=== PATIENT | female | born 1975 | race Caucasian/White ===

== ENCOUNTER → 2017-08-18 | Outpatient (CLI) | payer BC ==
[~2017-08-18] MED LIST: DIPH-437 PO; FERR324T PO; LISD1CAP2 PO; LORA-741 PO; OMEP20TA PO
== END | disposition home or self-care (01) ==
LOC: C.PAPS 09:01
PROVIDERS: ATTEND Physician Assistant
DX: Z01.419 Encounter for gynecological examination (general) (routine) without abnormal findings (principal)

== ENCOUNTER 2020-06-17 08:28 | Observation (INO) ==
[2020-06-17 09:30] LABS: Basophils # (auto) 0.03 K/uL (0-0.2); Basophils % (auto) 0.5 %; Eosinophils # (auto) 0.07 K/uL (0-0.5); Eosinophils % (auto) 1.3 %; Hematocrit (blood only) 43.9 % (37-47); Hemoglobin 14.4 g/dL (12.0-16.0); Immature Granulocytes # (auto) 0.01 K/uL (0.00-0.02); Immature Granulocytes % (auto) 0.2 %; Lymphocytes % (auto) 27.2 %; Mean Corpuscular Hemoglobin 30.4 pg (25-34); Mean Corpuscular Hgb Conc 32.8 g/dL (32-36); Mean Corpuscular Volume 92.6 fL (80-100); Mean Platelet Volume 9.3 fL (7.4-10.4); Monocytes # (auto) 0.65 K/uL (0.11-0.59); Monocytes % (auto) 11.8 %; Neutrophils # (auto) 3.26 K/uL (1.4-6.5); Platelet Count 472 K/uL (130-400); RDW Coefficient of Variation 13.8 % (11.5-14.5); RDW Standard Deviation 47.3 fL (36.4-46.3); Red Blood Count 4.74 M/uL (4.2-5.4); White Blood Count 5.52 K/uL (4.8-10.8)
[2020-06-17 09:44] LABS: Partial Thromboplastin Time 27.3 Seconds (21.0-31.0); Prothrombin Time 10.7 Seconds (9.0-12.0)
[2020-06-17] MEDS ORDERED: PANTOPRAZOLE BOLUS/DRIP 1 EA IV STA (09:44)
[2020-06-17] MEDS ORDERED: PANTOprazole 80 MG in DEXTROSE 5% 100 ML IV ONE (09:44)
[2020-06-17 09:46] LABS: Albumin Level 4.2 gm/dl (3.4-5.0); BUN Creatinine Ratio 15.5 (10-20); Calcium 9.1 mg/dl (8.5-10.1); Creatinine Clr Calc Pharmacy 74.6 ml/min; Est GFR (Non-African American) 76.8; Potassium 4.2 mmol/L (3.5-5.1)
[2020-06-17 09:48] LABS: Albumin Globulin Ratio 1.1 (0.9-2); Bilirubin,Total 0.4 mg/dl (0.2-1); Globulin 3.7 gm/dl (2.5-4.0); Total Protein 7.9 gm/dl (6.4-8.2)
--- NOTE | 2020-06-17 10:06 | Emergency Department Note ---
History of Present Illness General Chief complaint: Diarrhea Stated complaint: BLACK RUNNY STOOL Time Seen by Provider: 06/17/20 08:37 Source: patient Mode of arrival: ambulatory Limitations: no limitations History of Present Illness Provider complaint: GI bleed Maximum Pain Intensity: 0 This is a 44-year-old female who presents to the ED with a chief complaint of black stool. She is worried about GI bleed. Her symptoms started about an hour prior to arrival. She has had 2 episodes of black diarrhea that she is concerned about bleeding. She does have history of upper GI bleed in the past. She reports a history of gastric bypass surgery at [facility] about 17 years ago. The patient denies any other symptoms such as lightheadedness, chest pains or shortness of breath. She states that the previous time that she had this, she was admitted for several days and they could not encounter the source of bleeding. Home Medications Medication Instructions Recorded Confirmed Type melatonin 15 mg PO HS PRN 08/07/19 06/17/20 History phentermine 37.5 mg PO QAM 08/07/19 06/17/20 History diphenhydramine-acetaminophen 1 tab PO Q6H PRN 06/17/20 06/17/20 History [Tylenol PM Extra Strength] Allergies Allergy/AdvReac Type Severity Reaction Status Date / Time Penicillins Allergy Mild Verified 06/17/20 09:05 Sulfa (Sulfonamide Allergy Mild Verified 06/17/20 09:05 Antibiotics) amoxicillin Allergy Unknown RASH Verified 06/17/20 09:05 NSAIDS (Non-Steroidal AdvReac Unknown Unknown Unverified 06/17/20 09:05 Anti-Inflamma Past Med/Surg History Medical History (Updated 06/17/20 @ 10:05 by Marc Ramirez DO) No pertinent past medical history Surgical History No pertinent past surgical history Social History Smoking Status: Former smoker Feels Safe at Home: Yes Review of Systems A total of 10 systems reviewed and were otherwise negative Physical Exam Vital Signs Vital Signs - 24 hr 06/17/20 08:32 06/17/20 10:11 Temperature 36.5 C Temperature Source Oral Pulse Rate 108 H Pulse Rate [Apical] 96 H Pulse Rhythm Regular Pulse Rhythm [Apical] Regular Pulse Strength Normal Respiratory Rate 20 18 Respiratory Effort / Characteristics Non-Labored Spontaneous Non-Labored Spontaneous Respiratory Depth Normal Normal Respiratory Pattern Regular Regular Blood Pressure 157/98 H Blood Pressure [Right Arm] 145/97 H Blood Pressure Mean 117 Blood Pressure Mean [Right Arm] 113 Pulse Oximetry 99 100 Oxygen Delivery Method Room Air Room Air Sepsis Recent Fever Within 48 Hours No Sepsis New/Unexplained Change in Mental Status N/A Sepsis Action Taken by Nursing No Action Required CONSTITUTIONAL/VITAL SIGNS: Reviewed / noted above. GENERAL: Non-toxic in appearance. INTEGUMENTARY: Warm, dry, and New Site. HEAD: Normocephalic. EYES: without scleral icterus or trauma. ENT/OROPHARYNX: clear and moist. LYMPHADENOPATHY/NECK: Is supple without lymphadenopathy or meningismus. RESPIRATORY: Lungs clear and equal. CARDIOVASCULAR: Regular rate and rhythm. GI/ABDOMEN: Soft and nontender. No organomegaly or pulsatile mass. No rebound or guarding. Normal bowel sounds. EXTREMITIES: Warm and well perfused. BACK: No CVA tenderness. NEUROLOGICAL: Intact without focal deficits. PSYCHIATRIC: normal affect. MUSCULOSKELETAL: Normally developed with good muscle tone. TRIAGE NURSING DOCUMENTATION REVIEWED. Course Administered Medications Pantoprazole Sodium 40 mg/ (Dextrose) 100 mls @ 20 mls/hr IV Q5H [facility] Stop: 07/17/20 09:58 Last Admin: 06/17/20 10:10 Dose: 8 mg/hr, 20 mls/hr Documented by: [id number] Discontinued Medications Pantoprazole Sodium (Protonix Bolus/Drip) 0 mls @ 1 mls/hr IV ONE STA Stop: 06/17/20 09:45 Last Admin: 06/17/20 10:10 Dose: Not Given Documented by: [id number] Pantoprazole Sodium 80 mg/ (Dextrose) 120 mls @ 400 mls/hr IV NOW ONE Stop: 06/17/20 10:01 Last Infusion: 06/17/20 10:31 Dose: 0 mls/hr Documented by: [id number] Admin: 06/17/20 10:10 Dose: 400 mls/hr Documented by: [id number] Medical Decision Making Differential Diagnosis Differential includes acute coronary syndrome, myocardial infarction, CVA, TIA, anemia, infection, pneumonia, UTI, pyelonephritis, poor nutrition, dehydration, electrolyte disturbance,hypoglycemia. Medical Records Attestation: I reviewed the patient's medical records. Home Medications Current Medication List: was personally reviewed by me Laboratory Data Attestation: I reviewed the patient's lab results. Result diagrams: 06/17/20 09:21 06/17/20 09:21 Lab Results 06/17/20 06/17/20 06/17/20 Range/Units 09:21 09:21 09:21 WBC 5.52 (4.8-10.8) K/uL RBC 4.74 (4.2-5.4) M/uL Hgb 14.4 (12.0-16.0) g/dL Hct 43.9 (37-47) % MCV 92.6 (80-100) fL MCH 30.4 (25-34) pg MCHC 32.8 (32-36) g/dL RDW Std Deviation 47.3 H (36.4-46.3) fL RDW Coeff of Katrin 13.8 (11.5-14.5) % Plt Count 472 H (130-400) K/uL MPV 9.3 (7.4-10.4) fL Immature Gran % (Auto) 0.2 % Neut % (Auto) 59.0 % Lymph % (Auto) 27.2 % [place] % (Auto) 11.8 % Eos % (Auto) 1.3 % Baso % (Auto) 0.5 % Neut # (Auto) 3.26 (1.4-6.5) K/uL Lymph # (Auto) 1.50 (1.2-3.4) K/uL [place] # (Auto) 0.65 H (0.11-0.59) K/uL Eos # (Auto) 0.07 (0-0.5) K/uL Baso # (Auto) 0.03 (0-0.2) K/uL Immature Gran # (Auto) 0.01 (0.00-0.02) K/uL PT 10.7 (9.0-12.0) Seconds INR 1.0 (0.9-1.1) APTT 27.3 (21.0-31.0) Seconds PTT Ratio 1.0 Sodium 137 (136-145) mmol/L Potassium 4.2 (3.5-5.1) mmol/L Chloride 106 (98-107) mmol/L Carbon Dioxide 27 (21-32) mmol/L Anion Gap 4.0 (3-11) BUN 14 (7-18) mg/dl Creatinine 0.92 (0.6-1.2) mg/dl Est Cr Clr Drug Dosing 74.6 ml/min Est GFR ( Amer) 89.0 Est GFR (Non-Af Amer) 76.8 BUN/Creatinine Ratio 15.5 (10-20) Glucose 98 (70-99) mg/dl Calcium 9.1 (8.5-10.1) mg/dl Total Bilirubin 0.4 (0.2-1) mg/dl AST 29 (15-37) U/L ALT 36 (12-78) U/L Alkaline Phosphatase 58 (45-117) U/L Total Protein 7.9 (6.4-8.2) gm/dl Albumin 4.2 (3.4-5.0) gm/dl Globulin 3.7 (2.5-4.0) gm/dl Albumin/Globulin Ratio 1.1 (0.9-2) POC Stool Occult Blood (Negative) 06/17/20 Range/Units 09:45 WBC (4.8-10.8) K/uL RBC (4.2-5.4) M/uL Hgb (12.0-16.0) g/dL Hct (37-47) % MCV (80-100) fL MCH (25-34) pg MCHC (32-36) g/dL RDW Std Deviation (36.4-46.3) fL RDW Coeff of Katrin (11.5-14.5) % Plt Count (130-400) K/uL MPV (7.4-10.4) fL Immature Gran % (Auto) % Neut % (Auto) % Lymph % (Auto) % [place] % (Auto) % Eos % (Auto) % Baso % (Auto) % Neut # (Auto) (1.4-6.5) K/uL Lymph # (Auto) (1.2-3.4) K/uL [place] # (Auto) (0.11-0.59) K/uL Eos # (Auto) (0-0.5) K/uL Baso # (Auto) (0-0.2) K/uL Immature Gran # (Auto) (0.00-0.02) K/uL PT (9.0-12.0) Seconds INR (0.9-1.1) APTT (21.0-31.0) Seconds PTT Ratio Sodium (136-145) mmol/L Potassium (3.5-5.1) mmol/L Chloride (98-107) mmol/L Carbon Dioxide (21-32) mmol/L Anion Gap (3-11) BUN (7-18) mg/dl Creatinine (0.6-1.2) mg/dl Est Cr Clr Drug Dosing ml/min Est GFR ( Amer) Est GFR (Non-Af Amer) BUN/Creatinine Ratio (10-20) Glucose (70-99) mg/dl Calcium (8.5-10.1) mg/dl Total Bilirubin (0.2-1) mg/dl AST (15-37) U/L ALT (12-78) U/L Alkaline Phosphatase (45-117) U/L Total Protein (6.4-8.2) gm/dl Albumin (3.4-5.0) gm/dl Globulin (2.5-4.0) gm/dl Albumin/Globulin Ratio (0.9-2) POC Stool Occult Blood Positive A (Negative) ECG Data Attestation: I personally reviewed and interpreted this ECG as follows: Indication: + weakness Rate (beats per minute): 100 Rhythm: + sinus rhythm ECG ST segments: no ST elevation ECG Findings: no PVCs MDM Narrative Patient presents with 2 episodes of diarrhea with concerns about an upper GI bleed. She has history of gastric bypass. Her diarrhea stool is black and guaiac positive here concerning for an upper GI bleed. The patient was given IV Protonix with IV Protonix bolus and drip. She will be seen by the hospitalist service for further inpatient evaluation and care. Impression & Plan Acute upper gastrointestinal bleeding Discharge Plan Visit Data Chief Complaint: Diarrhea Stated Complaint: BLACK RUNNY STOOL ED Provider: aMrc Ramirez Discharge Problem: Acute upper gastrointestinal bleeding Patient Disposition: Being Evaluated by Hospitalist Forms Stand Alone Forms: [facility], [facility] Emergency Department, Important Visit Information Prescriptions Prescriptions: No Action phentermine 37.5 mg tablet 37.5 mg PO QAM RF: 0 melatonin 5 mg Tablet 15 mg PO HS PRN (Reason: Sleep) RF: 0 diphenhydramine-acetaminophen [Tylenol PM Extra Strength] 25-500 mg Tablet 1 tab PO Q6H PRN (Reason: Pain) RF: 0 Referrals Referrals: PCP,NO [Primary Care Provider] -
[2020-06-17] MEDS: PANTOprazole 40 MG in DEXTROSE 5% 100 ML IV SCH ×4 (10:10→23:34)
--- NOTE | 2020-06-17 11:23 | History & Physical Report ---
Date of Service June 17, 2020 Assessment & Plan (1) Acute upper gastrointestinal bleeding: Continue IV pantoprazole bolus and drip N.p.o. LR @ 125 ml/hr Consult gastroenterology (2) Insomnia: Continue Tyelenol PM PRN. Hold melatonin as patient reports unhelpful. (3) Recurrent UTI: Notable history of recurrent UTIs as per patient (4) H/O gastric bypass: Notable history of this. History of Present Illness Chief Complaint: Melena Primary Care Provider: Dr Andrade, PCP Solange Bender is a 44-year-old female with prior gastric bypass who presents to the ER with melena that started today. She had chicken, wine last night which was nothing out of the ordinary. No abdominal pain, heartburn, nausea, vomiting, hematemesis. She has a history of an upper GI bleed 8 to 10 years ago. She had an endoscopy and colonoscopy at that time but no bleeding was found per patient recollection. She does not remember how long she was on a PPI however is currently not taking any PPI or H2 sapna. She has a significant history of iron deficiency anemia. Unable to take iron oral supplementation therefore reports having a Venofer course prescribed once every few years. She takes phentermine for weight loss for last 7 months. Last time took yesterday. In the ER her stool was heme positive and she had an additional episode of melena. Hemaglobin was within normal limits. She was referred to medicine for admission and ongoing management of upper GI bleed. Allergies Allergy/AdvReac Type Severity Reaction Status Date / Time Penicillins Allergy Mild Verified 06/17/20 09:05 Sulfa (Sulfonamide Allergy Mild Verified 06/17/20 09:05 Antibiotics) amoxicillin Allergy Unknown RASH Verified 06/17/20 09:05 NSAIDS (Non-Steroidal AdvReac Unknown Unknown Unverified 06/17/20 09:05 Anti-Inflamma Home Medications Medication Instructions Recorded Confirmed Type melatonin 15 mg PO HS PRN 08/07/19 06/17/20 History phentermine 37.5 mg PO QAM 08/07/19 06/17/20 History diphenhydramine-acetaminophen 1 tab PO Q6H PRN 06/17/20 06/17/20 History [Tylenol PM Extra Strength] Past Med/Surg History Medical History (Updated 06/17/20 @ 11:46 by Nicholas Mendoza MD) Generalized anxiety disorder History of upper gastrointestinal bleeding Insomnia Iron deficiency anemia Recurrent UTI Surgical History (Updated 06/17/20 @ 11:18 by Nicholas Mendoza MD) H/O gastric bypass Social History (Updated 06/17/20 @ 11:21 by Nicholas Mendoza MD) Smoking Status: Former smoker Age Quit Using Tobacco: 42; packs per day: 0.5; Years Smoked: 22; Do You Dip or Chew Tobacco: No; Hx Alcohol Use: Yes Alcohol type: wine Hx Substance Use: Yes Prescribed Medications Comment: Medical marijuana Last Used Substance: Hours (ago) Last Used Substance Other:: 0700 Substance Use Type Other:: medical marijuana Preferred Language: Japanese Communication Ability: Effective Bottom Wheeler Required: No Beliefs That Will Affect Care: None Current Living Situation: Spouse Other Information That Helps Us Care for You: No Feels Safe at Home: Yes Safety Concerns: Feels Safe At This Time Assistive Devices: Contacts and Glasses Review of Systems Review of Systems: All systems reviewed & are unremarkable except as noted in HPI & below Physical Exam Constitutional: well developed and well nourished; no acute distress Eyes: + anicteric sclerae; normal pupil size ENMT: external ear and nose normal, oropharynx normal Neck: trachea midline, no thyromegaly Cardiovascular: RRR, no murmur, no edema Gastrointestinal (Abdomen): normal bowel sounds, soft, nontender, no hepatosplenomegaly Musculoskeletal: no cyanosis or clubbing, extremities motor strength 5/5 Skin: no rashes, warm and dry Neurologic: moves all extremities and awake; not confused Psychiatric: A+Ox3, euthymic affect Genitourinary: no CVA tenderness Results & Data Results & Data ([facility]) Vital Signs (Past 12 Hours) Vital Signs Temp Pulse Pulse Resp BP BP Pulse Ox 06/17/20 10:11 96 H 18 145/97 H 100 06/17/20 08:32 36.5 C 108 H 20 157/98 H 99 Medications Administered ER Medications given: Pantoprazole IV bolus and drip ECG Indication: other (GI bleed) Rate (beats per minute): 100 Rhythm: normal sinus Findings: no acute ischemic change Comparison ECG Date: from (Aug 07, 2019) Change: the following changes noted (TEI no longer present in inferior leads) Code Status & VTE Plan Code Status Full VTE Prophylaxis Plan VTE Prophylaxis will be ordered: No PG Care Time/CCT Total # of Minutes Spent Total Time Spent with Patient: Total time spent is greater than 50% in coordination of care (as documented) at patient's floor/unit and/or counseling patient: Coding Level of Care Code 22903 OBS Care - Level 2 Diagnoses Acute upper gastrointestinal bleeding K92.2 Insomnia G47.00 Recurrent UTI N39.0 H/O gastric bypass Z98.84
[2020-06-17] MEDS ORDERED: ONDANSETRON INJ 2 MG/ML 2 ML VIAL IV PRN (12:47)
[2020-06-17] MEDS ORDERED: MELATONIN 3 MG TAB PO PRN (12:56)
[2020-06-17] MEDS: LACTATED RINGER'S 1,000 ML IV SCH ×2 (13:05→20:39)
[2020-06-17] MEDS: ACETAMINOPHEN 325 MG TAB PO PRN ×2 (13:53→19:50)
[2020-06-17 18:29] LABS: Hematocrit (blood only) 39.6 % (37-47); Hemoglobin 13.1 g/dL (12.0-16.0)
[2020-06-18] MEDS ORDERED: Nursing to Pharmacy Communication SCH (03:15)
[2020-06-18] MEDS: LACTATED RINGER'S 1,000 ML IV SCH ×3 (03:49→20:46)
[2020-06-18] MEDS: PANTOprazole 40 MG in DEXTROSE 5% 100 ML IV SCH ×2 (03:50→09:13)
[2020-06-18] MEDS: ACETAMINOPHEN 325 MG TAB PO PRN ×3 (04:43→22:58)
[2020-06-18 07:47] LABS: Hematocrit (blood only) 41.5 % (37-47); Hemoglobin 13.5 g/dL (12.0-16.0); Mean Corpuscular Hemoglobin 30.3 pg (25-34); Mean Corpuscular Hgb Conc 32.5 g/dL (32-36); Mean Corpuscular Volume 93.3 fL (80-100); Mean Platelet Volume 9.4 fL (7.4-10.4); Platelet Count 421 K/uL (130-400); RDW Coefficient of Variation 13.8 % (11.5-14.5); RDW Standard Deviation 47.2 fL (36.4-46.3); Red Blood Count 4.45 M/uL (4.2-5.4); White Blood Count 6.52 K/uL (4.8-10.8)
[2020-06-18 08:30] LABS: BUN Creatinine Ratio 9.9 (10-20); Calcium 8.5 mg/dl (8.5-10.1); Creatinine Clr Calc Pharmacy 91.5 ml/min; Est GFR (African American) 113.9; Est GFR (Non-African American) 98.3; Potassium 3.6 mmol/L (3.5-5.1)
--- NOTE | 2020-06-18 10:46 | Gastrointestinal Consultation ---
Date of Consultation June 18, 2020 Assessment & Plan (1) H/O gastric bypass: (2) Acute upper gastrointestinal bleeding: (3) Melena: Continue Protonix but decrease to 40 mg IV BID Clear Liquid diet NPO after midnight EGD in AM Further recommendations to follow above noted testing History of Present Illness Reason for Consultation: Melena Attending Physician: Fred Gunn DO History of Present Illness Solange Bender is a pleasant 44 yo CF who presented to the ER yesterday with 3 reported episodes of melena. Upon arrival to the ER, she did have another episode of melena, and was found to be heme positive in the ER. She was hemodynamically stable and H/H was good. She was started on a protonix gtt. and admitted. At the time I saw her, she states that she is feeling much better. She denies having any further BM's. She denies any abdominal pain, fevers, chills, nausea, vomiting, hematemesis, or hematochezia. She states that she is hungry. Of note, she states that she underwent Gastric Bypass surgery approximately 17 years ago, and did have a prior GI bleed approximately 10 years ago. She states that her presentation at that time was similar, with multiple episodes of black tarry stools. She reports that she did have both an EGD and colonoscopy at that time, but does not remember being told of any abnormalities. She states that she has not take PPI therapy and has no recurrent GERD symptoms. She denies any NSAID use. She has no further complaints. Allergies Allergy/AdvReac Type Severity Reaction Status Date / Time Penicillins Allergy Mild Verified 06/17/20 09:05 Sulfa (Sulfonamide Allergy Mild Verified 06/17/20 09:05 Antibiotics) amoxicillin Allergy Unknown RASH Verified 06/17/20 09:05 NSAIDS (Non-Steroidal AdvReac Unknown Unknown Unverified 06/17/20 09:05 Anti-Inflamma Home Medications Medication Instructions Recorded Confirmed Type melatonin 15 mg PO HS PRN 08/07/19 06/17/20 History phentermine 37.5 mg PO QAM 08/07/19 06/17/20 History diphenhydramine-acetaminophen 1 tab PO Q6H PRN 06/17/20 06/17/20 History [Tylenol PM Extra Strength] Patient History Medical History Generalized anxiety disorder History of upper gastrointestinal bleeding Insomnia Iron deficiency anemia Recurrent UTI Surgical History H/O gastric bypass Social History Smoking Status: Former smoker Age Quit Using Tobacco: 42; packs per day: 0.5; Years Smoked: 22; Do You Dip or Chew Tobacco: No; Hx Alcohol Use: Yes Alcohol type: wine Hx Substance Use: Yes Prescribed Medications Comment: Medical marijuana Last Used Substance: Hours (ago) Last Used Substance Other:: 0700 Substance Use Type Other:: medical marijuana Preferred Language: Estonian Communication Ability: Effective Manufacturing Controller Required: No Beliefs That Will Affect Care: None Current Living Situation: Spouse Other Information That Helps Us Care for You: No Feels Safe at Home: Yes Safety Concerns: Feels Safe At This Time Assistive Devices: Contacts and Glasses Review of Systems Review of Systems: All systems reviewed & are unremarkable except as noted in HPI & below Physical Exam Constitutional: WD/WN, vitals as above Eyes: PERRL, conjunctivae normal, anicteric sclerae ENMT: external ear and nose normal, oropharynx normal Neck: trachea midline, no thyromegaly Respiratory: normal respiratory effort; no respiratory distress and no labored breathing Cardiovascular: Rate/Rhythm: regular rate and regular rhythm Gastrointestinal (Abdomen): normal bowel sounds, soft, nontender, no hepatosplenomegaly Skin: no rashes, warm and dry Psychiatric: A+Ox3, euthymic affect Results & Data ([facility]) Vital Signs (Past 12 Hours) Vital Signs Temp Pulse Pulse Resp BP Pulse Ox 06/18/20 08:10 37.1 C 93 H 16 136/80 97 06/18/20 07:41 73 06/18/20 03:00 36.8 C 83 16 130/79 97 06/18/20 01:00 80 06/17/20 23:00 37.1 C 84 18 135/85 96 PG Care Time/CCT Total # of Minutes Spent Total Time Spent with Patient: Total time spent is greater than 50% in coordination of care (as documented) at patient's floor/unit and/or counseling patient: Coding Level of Care Code 66466 Inpt Consult Level 4 Diagnoses H/O gastric bypass Z98.84 Acute upper gastrointestinal bleeding K92.2 Melena K92.1
--- NOTE | 2020-06-18 15:11 | Hospitalist Progress Note ---
Date of Service June 18, 2020 Assessment & Plan (1) Acute upper gastrointestinal bleeding: Solange Bender is a 44 y/o female with hx of GABI (unable to take iron oral supplementation therefore receives Venofer once every few years), gastric bypass surgery ~17 years ago, recurrent UTIs, insomnia, and prior GI bleed 8-10 years ago admitted for upper GI bleed on 06/17/20. Acute upper gastrointestinal bleeding w/ melena - Continue IV pantoprazole 40mg BID - Per GI, clear liquid diet today then plan for NPO after midnight in preparation for EGD tomorrow, 06/19/20 - Continue IVF with LR at 125 ml/hr - CBC qAM - GI consulted; appreciate their recommendations Insomnia - Continue home Tylenol PM PRN - Continue home melatonin 15mg po qhs prn Hx of gastric bypass - performed 17 years ago - Patient w/ healthy BMI of 24.8 - She is noted to have been taking Phentermine for the past 7 months - No changes in weight over the past several weeks - Would consider d/c phentermine given healthy weight at this time Hx of Iron Deficiency Anemia - Continue outpatient management Diet: Clear liquid diet; NPO at midnight in preparation for EGD tomorrow DVT PPx: Ad jono as tolerated; pharmacologic ppx contraindicated due to current GI bleed Disp: Medsurge --> anticipate d/c home after EGD if Hgb remains stable Code status: FULL CODE (2) Melena: (3) H/O gastric bypass: (4) Insomnia: Admission and Anticipated Discharge Date Admission Date: June 17, 2020 Supervising Physician Co-Signing Physician Notes I personally examined the patient and verified all wills points of history and exam, discussed case, and agree with decision making with Dr Hernandez. feeling better for scope tomorrow vitals noted nad heent nc at mmm breathing unlabored no accessory muscles good effort skin no rashes no pallor or icterus neuro no focal deficits UGI bleed - ppi, scope tomorrow. hemodynamically stable otherwise as above Subjective Patient seen and evaluated at bedside this morning. Patient states that she overall feels well. Reports last bowel movement occurring when in the ED yesterday. Patient denies abdominal pain, nausea, vomiting, fever, chills, CP, SOB, or cough. Review of Systems Constitutional: no fever and no chills Respiratory: no cough and no dyspnea Cardiovascular: no chest pain Gastrointestinal: no abdominal pain, no nausea and no vomiting Physical Exam Physical Exam: GENERAL: No acute distress. Well developed and well nourished. Vital signs reviewed. EYES: EOMI. Anicteric sclerae. HENT: Moist mucous membranes. RESPIRATORY: Clear to auscultation bilaterally. No wheezing, rales, or rhonchi. CARDIOVASCULAR: Regular rate and rhythm. No murmurs. ABDOMEN: Soft, non-tender and non-distended. Normal bowel sounds. EXTREMITIES: No edema. Non-tender. NEUROLOGIC: A/O x4. No focal neurological deficits. PSYCHIATRIC: Cooperative. Appropriate mood and affect. Results & Data Results & Data ([place]) Vital Signs (Past 12 Hours) Vital Signs Temp Pulse Pulse Resp BP Pulse Ox 06/18/20 12:26 36.7 C 80 16 148/92 H 98 06/18/20 08:10 37.1 C 93 H 16 136/80 97 06/18/20 07:41 73 Resident Activity Tracking Resident Involvement: Resident Care Provided Care Provided: Adult Hospital Medicine
--- NOTE | 2020-06-18 17:35 | Billing Data ---
Date of Service June 18, 2020 Coding Level of Care Code 97582 Subseq Hosp Care Lvl 3
--- NOTE | 2020-06-18 17:38 | Billing Data ---
Date of Service June 18, 2020 Coding Level of Care Code 50780 Subseq Obs Care Lvl 3 Comment disregard 233 - wrong code
[2020-06-18] MEDS: PANTOprazole 40 MG in SYRINGE 0 ML IV SCH ×2 (20:27→20:54)
[2020-06-19] MEDS: LACTATED RINGER'S 1,000 ML IV SCH ×3 (04:57→16:44)
[2020-06-19] MEDS ORDERED: ACETAMINOPHEN 1,000 MG/100 ML VIAL IV STA (05:03)
--- NOTE | 2020-06-19 06:16 | Hospitalist Progress Note ---
Date of Service June 19, 2020 Assessment & Plan (1) Acute upper gastrointestinal bleeding: Solange Bender is a 44 y/o female with hx of GABI (unable to take iron oral supplementation therefore receives Venofer once every few years), gastric bypass surgery ~17 years ago, recurrent UTIs, insomnia, and prior GI bleed 8-10 years ago admitted for upper GI bleed on 06/17/20. Acute upper gastrointestinal bleeding w/ melena - Continue IV pantoprazole 40mg BID - Per GI, clear liquid diet today then plan for NPO after midnight in preparation for EGD tomorrow, 06/19/20 - Continue IVF with LR at 125 ml/hr - CBC qAM - GI consulted; appreciate their recommendations Insomnia - Continue home Tylenol PM PRN - Continue home melatonin 15mg po qhs prn Hx of gastric bypass - performed 17 years ago - Patient w/ healthy BMI of 24.8 - She is noted to have been taking Phentermine for the past 7 months - No changes in weight over the past several weeks - Would consider d/c phentermine given healthy weight at this time Hx of Iron Deficiency Anemia - Continue outpatient management Diet: Clear liquid diet; NPO at midnight in preparation for EGD tomorrow DVT PPx: Ad jono as tolerated; pharmacologic ppx contraindicated due to current GI bleed Disp: Medsurge --> anticipate d/c home after EGD if Hgb remains stable Code status: FULL CODE (2) Melena: (3) H/O gastric bypass: (4) Insomnia: Admission and Anticipated Discharge Date Admission Date: June 17, 2020 Subjective MCDUFFIE last night, received Tylenol IV b/c NPO in lieu of procedure today. --from yesterday-- Patient seen and evaluated at bedside this morning. Patient states that she overall feels well. Reports last bowel movement occurring when in the ED yesterday. Patient denies abdominal pain, nausea, vomiting, fever, chills, CP, SOB, or cough. Results & Data Results & Data ([facility]) Vital Signs (Past 12 Hours) Vital Signs Temp Pulse Pulse Resp BP Pulse Ox 06/19/20 03:59 73 06/19/20 03:00 36.9 C 83 16 144/77 H 96 06/18/20 23:55 37.0 C 78 16 124/78 96 06/18/20 20:20 36.8 C 82 18 156/90 H 96
--- NOTE | 2020-06-19 06:23 | Electrocardiogram Report ---
Test Reason : Blood Pressure : / mmHG Vent. Rate : 100 BPM Atrial Rate : 100 BPM P-R Int : 142 ms QRS Dur : 092 ms QT Int : 360 ms P-R-T Axes : 078 085 052 degrees QTc Int : 464 ms Normal sinus rhythm Normal ECG When compared with ECG of 07-AUG-2019 13:42, T wave inversion no longer evident in Inferior leads Nonspecific T wave abnormality no longer evident in Anterolateral leads Confirmed by Obie Lezama ([id number]) on 06/19/2020 6:22:39 AM Referred By: REFERRED SELF Confirmed By:Obie Lezama
[2020-06-19 07:45] LABS: Basophils # (auto) 0.02 K/uL (0-0.2); Basophils % (auto) 0.4 %; Eosinophils # (auto) 0.14 K/uL (0-0.5); Eosinophils % (auto) 2.6 %; Hematocrit (blood only) 41.4 % (37-47); Hemoglobin 13.3 g/dL (12.0-16.0); Immature Granulocytes # (auto) 0.01 K/uL (0.00-0.02); Immature Granulocytes % (auto) 0.2 %; Lymphocytes # (auto) 1.96 K/uL (1.2-3.4); Lymphocytes % (auto) 36.9 %; Mean Corpuscular Hemoglobin 30.2 pg (25-34); Mean Corpuscular Hgb Conc 32.1 g/dL (32-36); Mean Corpuscular Volume 94.1 fL (80-100); Mean Platelet Volume 9.6 fL (7.4-10.4); Monocytes # (auto) 0.58 K/uL (0.11-0.59); Monocytes % (auto) 10.9 %; Platelet Count 430 K/uL (130-400); RDW Coefficient of Variation 13.8 % (11.5-14.5); RDW Standard Deviation 47.5 fL (36.4-46.3); White Blood Count 5.31 K/uL (4.8-10.8)
--- NOTE | 2020-06-19 09:21 | History & Physical Bridge Note ---
Date of Service June 19, 2020 History & Physical Bridge Note I have examined the patient, reviewed the History & Physical and in the interval since the performance of the History & Physical I have noted the following changes of clinical significance: no changes noted. H/H normal this morning at 13.3/41.4. No further bleeding. Patient has been NPO since prior to midnight. Proceed with EGD today. Supervising Physician Co-Signing Physician Notes Agree with SOWMYA Najera Abd: Soft, NT, ND, +BS Continue current therapy Proceed with EGD now.
[2020-06-19] MEDS ORDERED: LORazepam 0.5 MG/1 ML VIAL IV STA (10:19)
[2020-06-19] MEDS: PANTOprazole 40 MG in SYRINGE 0 ML IV SCH (10:39)
--- NOTE | 2020-06-19 13:19 | Anesthesiology Consultation ---
Date of Service June 19, 2020 Assessment & Plan Chart Review Chart Review: Acceptable Risk for Surgery Consults Requested none History Surgery Operation Date: 06/19/20 16:00 Proposed Procedures p Esophagogastroduodenoscopy Dr Kingston Reza Case, DO Height/Weight Height: 5 ft 6 in Weight: 69.4 kg Allergies Allergy/AdvReac Type Severity Reaction Status Date / Time Penicillins Allergy Mild Verified 06/19/20 13:07 Sulfa (Sulfonamide Allergy Mild Verified 06/19/20 13:07 Antibiotics) amoxicillin Allergy Unknown RASH Verified 06/19/20 13:07 NSAIDS (Non-Steroidal AdvReac Unknown Unknown Verified 06/19/20 13:07 Anti-Inflamma Medications Home Medications Medication Instructions Recorded Confirmed Last Taken melatonin 15 mg PO HS PRN 08/07/19 06/17/20 08/06/19 phentermine 37.5 mg PO QAM 08/07/19 06/17/20 06/16/20 diphenhydramine-acetaminophen 1 tab PO Q6H PRN 06/17/20 06/17/20 06/17/20 07:30 [Tylenol PM Extra Strength] 2 tablets Active Medications Generic Name Dose Route Start Last Admin Trade Name Freq PRN Reason Stop Dose Admin Acetaminophen 650 mg 06/17/20 12:47 06/18/20 22:58 Acetaminophen 325 Mg Tab PO 07/17/20 12:46 650 mg Q4H PRN Administration Pain or Fever Lactated Ringer's 1,000 mls @ 125 mls/hr 06/17/20 12:47 06/19/20 05:01 Lr IV 07/17/20 12:46 125 mls/hr .Q8H LEO Administration Pantoprazole Sodium 40 mg/ 10 mls @ 5 mls/min 06/18/20 21:00 06/19/20 10:39 Syringe IV 07/18/20 20:59 5 mls/min BID LEO Administration NPO Date Last Intake of Fluids: 06/18/20 Time Last Intake of Fluids: 23:00 Date Last Intake of Solids: 06/17/20 Time Last Intake of Solids: 07:00 Past Medical History Medical History Generalized anxiety disorder History of upper gastrointestinal bleeding Insomnia Iron deficiency anemia Recurrent UTI Past Surgical History Surgical History H/O gastric bypass Social History Smoking Status: Former smoker Do You Dip or Chew Tobacco: No Hx Alcohol Use: Yes Alcohol type: wine alcohol intake frequency: a few times a month Alcohol Intake Frequency Comment: 1 bottle on Fridays Hx Substance Use: Yes substance use type: marijuana and prescription drug Substance Use Type Other:: medical marijuana Last Used Substance: Hours (ago) Last Used Substance Other:: 0700 Physical Exam Vital Signs Last Vital Signs Temp 37 C 06/19/20 13:07 Pulse 86 06/19/20 13:07 Resp 18 06/19/20 13:07 BP 154/101 H 06/19/20 13:07 Pulse Ox 97 06/19/20 13:07 Testing Laboratory Results 06/19/20 07:06 06/18/20 07:28 PT 10.7 Seconds (9.0-12.0) 06/17/20 09:21 INR 1.0 (0.9-1.1) 06/17/20 09:21 APTT 27.3 Seconds (21.0-31.0) 06/17/20 09:21
[2020-06-19] MEDS ORDERED: LIDOCAINE HCL 2% 2 ML VIAL/AMP(20MG/ML) INFIL ONE (14:24)
[2020-06-19] MEDS ORDERED: PROPOFOL IV EMULSION 10 MG/ML 20 ML VIAL IV ONE (14:24)
--- NOTE | 2020-06-19 14:50 | GI REPORT ---
Patient Name: Solange Bender Procedure Date: 06/19/2020 2:22 PM Date of : 1975 Admit Type: Inpatient Age: 44 Gender: Female Attending MD: Deep Onofre DO Procedure: Upper GI endoscopy Providers: Deep Onofre DO Referring MD: Marquita Koo Indications: Melena Medicines: Monitored Anesthesia Care Complications: No immediate complications. Estimated Blood Loss: Estimated blood loss: none. Procedure: Pre-Anesthesia Assessment: - Prior to the procedure, a History and Physical was performed, and patient medications and allergies were reviewed. The patient's tolerance of previous anesthesia was also reviewed. The risks and benefits of the procedure and the sedation options and risks were discussed with the patient. All questions were answered, and informed consent was obtained. Prior Anticoagulants: The patient has taken no previous anticoagulant or antiplatelet agents. ASA Grade Assessment: II - A patient with mild systemic disease. After reviewing the risks and benefits, the patient was deemed in satisfactory condition to undergo the procedure. The Scope was introduced through the mouth, and advanced to the jejunum. The upper GI endoscopy was accomplished without difficulty. The patient tolerated the procedure well. Findings: The esophagus was normal. Evidence of a gastric bypass was found. A gastric pouch with a normal size was found. The gastrojejunal anastomosis was characterized by healthy appearing mucosa. This was traversed. The [id number] limb was characterized by healthy appearing mucosa. The examined jejunum was normal. Impression: - Normal esophagus. - Gastric bypass with a normal-sized pouch. Gastrojejunal anastomosis characterized by healthy appearing mucosa. - Normal examined jejunum. - No specimens collected. Recommendation: - Return patient to [facility] for ongoing care. - Advance diet as tolerated. - Continue present medications. - Return to primary care physician as previously scheduled. Deep Onofre DO 06/19/2020 2:50:03 PM This report has been signed electronically. Note Initiated On: 06/19/2020 2:22 PM Number of Addenda: 0 I attest to the content of the Intraoperative Record and orders documented therein, exceptions below {[id number]}
--- NOTE | 2020-06-19 15:20 | Medical Student Progress Note ---
Date of Service June 19, 2020 Assessment & Plan Admission and Anticipated Discharge Date Admission Date: June 17, 2020 Solange is a 44 year old female with a past medical history of gastric bypass and GI bleed, presenting after 2 episodes of dark black stool. Upper gastrointestinal bleed with melena - EGD unremarkable, shows normal esophagus, healthy appearing mucosa and normal jejunum - Per GI recommendations: advance diet as tolerated, continue all present medications, follow up with PCP - Hgb stable at 13.3 - Possible discharge today as patient is feeling well and hemodynamically stable with unremarkable EGD History of gastric bypass - BMI currently 24.7 - Recommended follow up with PCP regarding continuing phentermine given normal BMI Iron deficiency anemia - Continue current management Insomnia - Continue current home regimen Diet: Advance diet as tolerated DVT PPx: pharmacologic prophylaxis contraindicated due to current GI bleed Code status: FULL CODE Subjective Solange reports doing well this morning. She has had one bowel movement since admission which she notes was closer to normal for her. She denies any shortness of breath, chest pain, light headedness, nausea, vomiting, abdominal pain or cramping. She does have a headache which she attributes to lack of caffeine due to NPO status. She also reports some instances of feeling like her heart is racing which she attributes to anxiety about being in the hospital. Review of Systems Review of Systems: General: Solange is generally feeling well with no fevers or chills. Resp: Denies any shortness of breath Cardio: Denies chest pain, reports feeling like her "heart is racing" at times Gastrointestinal: Denies abdominal pain or cramping, nausea, vomiting Psych: Awake and alert x3, reports some anxiety Physical Exam Constitutional: healthy appearing and comfortable; no acute distress Eyes: + anicteric sclerae and EOM intact bilaterally Respiratory: normal respiratory effort, lungs clear to auscultation Auscultation: lungs clear to auscultation bilaterally Cardiovascular: Rate/Rhythm: regular rate and regular rhythm Heart Sounds: no gallop, no murmur and no cardiac rub Extremities: no edema Gastrointestinal (Abdomen): normal bowel sounds, soft, nontender, no hepatosplenomegaly Skin: no rashes, warm and dry Psychiatric: A+Ox3, euthymic affect Results & Data ([facility]) Vital Signs (Past 12 Hours) Vital Signs Temp Pulse Pulse Resp BP Pulse Ox 06/19/20 14:53 85 14 132/88 98 06/19/20 13:07 37 C 86 18 154/101 H 97 06/19/20 11:15 36.6 C 93 H 20 157/94 H 96 06/19/20 08:00 81 06/19/20 07:31 36.7 C 76 18 152/91 H 98 06/19/20 03:59 73
--- NOTE | 2020-06-19 15:29 | Anesthesiology Progress Note ---
Date of Service June 19, 2020 Anesthesia Post Procedure Vital Signs Vital Signs: Temp Pulse Pulse Resp BP Pulse Ox 06/19/20 15:22 88 13 140/91 97 06/19/20 15:08 79 12 144/88 H 98 06/19/20 14:53 85 14 132/88 98 06/19/20 13:07 37 C 86 18 154/101 H 97 06/19/20 11:15 36.6 C 93 H 20 157/94 H 96 06/19/20 08:00 81 06/19/20 07:31 36.7 C 76 18 152/91 H 98 06/19/20 03:59 73 06/19/20 03:00 36.9 C 83 16 144/77 H 96 06/18/20 23:55 37.0 C 78 16 124/78 96 06/18/20 20:20 36.8 C 82 18 156/90 H 96 06/18/20 16:04 78 Pain Intensity Head: Pain Intensity: 2 Transfer of Care Handoff Completed per policy Notes Mental Status: alert / awake / arousable and participated in evaluation Patient Amnestic to Procedure: Yes Nausea / Vomiting: adequately controlled Pain: adequately controlled Airway Patency, RR, SpO2: stable & adequate BP & HR: stable & adequate Hydration State: stable & adequate Anesthetic Complications: no major complications apparent
[2020-06-19] MEDS ORDERED: Nursing to Pharmacy Communication SCH (16:45)
[2020-06-19] MEDS: ACETAMINOPHEN 325 MG TAB PO PRN (17:52)
--- NOTE | 2020-06-19 18:07 | Discharge Summary ---
Date of Service June 19, 2020 Admission HPI Per Admitting Provider Solange Bender is a 44-year-old female with prior gastric bypass who presents to the ER with melena that started today. She had chicken, wine last night which was nothing out of the ordinary. No abdominal pain, heartburn, nausea, vomiting, hematemesis. She has a history of an upper GI bleed 8 to 10 years ago. She had an endoscopy and colonoscopy at that time but no bleeding was found per patient recollection. She does not remember how long she was on a PPI however is currently not taking any PPI or H2 sapna. She has a significant history of iron deficiency anemia. Unable to take iron oral supplementation therefore reports having a Venofer course prescribed once every few years. She takes phentermine for weight loss for last 7 months. Last time took yesterday. In the ER her stool was heme positive and she had an additional episode of melena. Hemaglobin was within normal limits. She was referred to medicine for admission and ongoing management of upper GI bleed. Admission Exam Per Admitting Provider Constitutional: well developed and well nourished; no acute distress Eyes: + anicteric sclerae; normal pupil size ENMT: external ear and nose normal, oropharynx normal Neck: trachea midline, no thyromegaly Cardiovascular: RRR, no murmur, no edema Gastrointestinal (Abdomen): normal bowel sounds, soft, nontender, no hepatosplenomegaly Musculoskeletal: no cyanosis or clubbing, extremities motor strength 5/5 Skin: no rashes, warm and dry Neurologic: moves all extremities and awake; not confused Psychiatric: A+Ox3, euthymic affect Genitourinary: no CVA tenderness Principal Diagnosis upper GI bleed Discharge Exam Constitutional WD/WN, vitals as above Well appearing 44 year old female who was lying back in her hospital bed upon my arrival. Alert and oriented throughout our discussion, NAD. Denies dizziness or lightheadedness. Respiratory normal respiratory effort, lungs clear to auscultation Cardiovascular RRR, no murmur, no edema Gastrointestinal (Abdomen) normal bowel sounds, soft, nontender, no hepatosplenomegaly Psychiatric A+Ox3, euthymic affect Discharge Data Allergies Allergy/AdvReac Type Severity Reaction Status Date / Time Penicillins Allergy Mild Verified 06/19/20 13:07 Sulfa (Sulfonamide Allergy Mild Verified 06/19/20 13:07 Antibiotics) amoxicillin Allergy Unknown RASH Verified 06/19/20 13:07 NSAIDS (Non-Steroidal AdvReac Unknown Unknown Verified 06/19/20 13:07 Anti-Inflamma Consultations 06/17/20 10:34 ED Decision to Admit Stat 06/17/20 12:47 Consult Gastroenterology Routine Procedures Performed Operation Date: 06/19/20 16:00 Actual Procedures p Esophagogastroduodenoscopy - Deep Reza Case, DO Hospital Course (1) Acute upper gastrointestinal bleeding: Solange Bender is a 44 y/o female with hx of GABI (unable to take iron oral supplementation therefore receives Venofer once every few years), gastric bypass surgery ~17 years ago, recurrent UTIs, insomnia, and prior GI bleed 8-10 years ago admitted for upper GI bleed on 06/17/20. Acute upper gastrointestinal bleeding w/ melena - Kept on IV protonix - GI consulted: EGD performed 06/19 demonstrated healthy tissue s/p bypass w ithout significant abnormalities that might account for bleeding - Hgb stable at 13.3 upon discharge, remained hemodynamically stable throughout stay - PPI rx given on discharge. Hx of gastric bypass - performed 17 years ago - Patient w/ healthy BMI of 24.8 - She is noted to have been taking phentermine for the past 7 months - No changes in weight over the past several weeks - We spent time discussing goals for moving forward with phentermine -- currently, is not looking to discontinue. - Continue to engage in shared decision making RE: phentermine, long-term goals in the outpatient setting Hx of Iron Deficiency Anemia - Continued outpatient management involving iron infusions Insomnia - Continued home melatonin 15mg po qhs prn Recommended labs at discharge: - Consider CBC outpatient to recheck Hgb compared to admission (2) Melena: (3) H/O gastric bypass: (4) Insomnia: Total Time Total Time Spent Total Time Spent (In Minutes): 2 nights Discharge Plan Discharge Items Patient Disposition: Home - Self-Care Reason For Visit: UPPER GI BLEED,MELENA Discharge Diagnosis: upper GI bleed Condition on Discharge: Good Activity: Per Instructions section Non-emergency contact: Primary Care Provider Call non-emergency contact if: you have any medication questions and your symptoms worsen Follow-up/Referrals: PCP,NO [Primary Care Provider] - Diet: Regular Addtl Attending Provider Instructions: You were seen at [facility] from 06/17 - 06/19 for evaluation of symptoms suggestive of an upper GIB. During your stay, you underwent several tests and evaluations to determine the source of this bleeding, and to monitor your blood counts and vital signs. In addition to this, you underwent a scope of the upper GI tract to try and identify the source of bleeding. Of the parts of the GI tract that was visualized in this study, no obvious source of bleeding was identified. Thankfully, your blood counts and vital signs stayed stable during your stay -- and continued to stay this way through discharge. Upon leaving the hospital, please follow-up your PCP to discuss this visit, and to discuss whether or not further imaging studies -- such as a "pill camera" -- may be indicated to work-up this visit. Please take pantoprazole -- a proton- pump inhibitor, which suppresses acid production in your stomach -- until you visit your PCP, especially given this was your second GI bleed. Further, you should continue to discuss goals of phentermine with your PCP moving forward -- as we discussed, this medication can be effective at helping individuals lose weight, but should be used carefully given its side effects. If you experience any lightheadedness, dizziness, further dark/discolored stools associated with these symptoms, shortness of breath, or other concerning symptoms, please report immediately to the ER or call 911. Pending Studies at Discharge: No Stand-Alone Forms: [facility], Smoking Cessation Medications and DC Order Prescriptions: New pantoprazole 20 mg tablet,delayed release (DR/EC) 20 mg PO DAILY 42 Days Qty: 42 RF: 0 Continued phentermine 37.5 mg tablet 37.5 mg PO QAM RF: 0 melatonin 5 mg Tablet 15 mg PO HS PRN (Reason: Sleep) RF: 0 diphenhydramine-acetaminophen [Tylenol PM Extra Strength] 25-500 mg Tablet 1 tab PO Q6H PRN (Reason: Pain) RF: 0 Discharge Orders: Discharge Order (Routine); Ordered 06/19/20 Ordered By: Fred Garrett Admission Data Admit Date/Time: 06/17/20 10:43 Attending Provider: Marquita Koo Admit Provider: Nicholas Mendoza Primary Care Provider: PCP,NO Other Providers: Nicholas Mendoza ; Deep Onofre ; Fred Gunn Other Interventions: Discharge Summary Assessment (RN) Last Done: 06/19/20 18:07 Supervising Physician Co-Signing Physician Notes Resident Physician Supervision Note: I independently interviewed and examined the patient and verified the wills history and physical, reviewed labs and image studies, discussed the case with the resident Dr. Garrett and agree with the findings and care plan. Resident Activity Tracking Resident Involvement: Resident Care Provided Care Provided: Adult Hospital Medicine
== END 2020-06-19 18:55 | disposition home or self-care (01) ==
LOC: 2N 08:28 → ED 08:28 → SUATTDRO 10:43 → 2N 12:07